=== PATIENT | male | born 1940 | race Caucasian/White ===

== ENCOUNTER 2016-10-03 15:20 | Emergency (ER) | payer MEDICARE, OTHER ==
[2016-10-03] MEDS ORDERED: IPRATROPIUM/ALBUTEROL (0.5MG/3MG) NEB INH ONE (15:38)
--- NOTE | 2016-10-03 15:41 | Emergency Department Record ---
History of Present Illness - General Chief Complaint: Cough Stated Complaint: COUGH Time Seen by Provider: 10/03/16 15:37 Source: Patient Mode of Arrival: Ambulatory Limitations: No limitations - History of Present Illness Initial Comments: 76 yo male presents to ED with a CC of cough symptoms for the past 2 weeks. Patient denies fevers or chills, denies previous heart or lung problems. Patient denies health problems at his baseline, and denies any medications. MD Complaint: Cough Onset/Timin -: Week(s) Severity: Mild Severity scale (1-10): 2 Consistency: Constant Improves With: Nothing Worsens With: Nothing Associated Symptoms: Denies other symptoms - Related Data Previous Rx's Medication Instructions Recorded Albuterol Sulfate [Proair 90 mcg IH Q4HR PRN #1 [email or web address] 10/03/16 Respiclick] Azithromycin [Zithromax] 250 mg PO DAILY #6 tablet 10/03/16 Prednisone [Prednisone 20Mg] 20 mg PO TID #15 tab 10/03/16 Allergies Allergy/AdvReac Type Severity Reaction Status Date / Time No Known Drug Allergies Allergy Verified 12/30/13 10:36 Travel Screening - Travel/Exposure Within Last 30 Days Have you traveled within the last 30 days?: No Review of Systems Constitutional: Denies: Chills, Fever, Malaise, Night sweats Eyes: Denies: Eye discharge, Eye pain ENT: Reports: Congestion. Denies: Ear pain, Epistaxis Respiratory: Reports: Cough. Denies: Dyspnea, Hemoptysis Cardiovascular: Denies: Chest pain, Dyspnea on exertion Endocrine: Denies: Fatigue, Heat or cold intolerance Gastrointestinal: Denies: Abdominal pain, Nausea, Vomiting Genitourinary: Denies: Incontinence, Retention Musculoskeletal: Denies: Arthralgia, Back pain, Gout, Joint swelling Skin: Denies: Bruising, Change in color Neurological: Denies: Abnormal gait, Confusion, Headache, Seizure Psychiatric: Denies: Anxiety Hematological/Lymphatic: Denies: Anemia, Blood Clots Past Medical History - SOCIAL HISTORY Smoking Status: Never smoker Alcohol Use: None Drug Use: None - RESPIRATORY Hx Respiratory Disorders: No - CARDIOVASCULAR Hx Cardio Disorders: No Comment:: enlarged heart - NEURO Hx Neuro Disorders: No - GI Hx GI Disorders: No - Hx Genitourinary Disorders: No - ENDOCRINE Hx Endocrine Disorders: No - MUSCULOSKELETAL Hx Musculoskeletal Disorders: No - PSYCH Hx Psych Problems: No - HEMATOLOGY/ONCOLOGY Hx Hematology/Oncology Disorders: No Family Medical History Any Significant Family History?: Yes Hx Heart Disease: Father, Mother Hx Stroke: Brother/Sister Physical Exam - General General Appearance: Alert, Oriented x3, Cooperative, No acute distress Limitations: No limitations - Head Head exam: Atraumatic, Normocephalic, Normal inspection Head exam detail: negative: Abrasion, Contusion, Rodriguez's sign, General tenderness, Hematoma, Laceration - Eye Eye exam: Normal appearance. negative: Conjunctival injection, Periorbital swelling, Periorbital tenderness, Scleral icterus - ENT Ear exam: negative: Auricular hematoma, Auricular trauma Nasal Exam: negative: Active bleeding, Discharge, Dried blood, Foreign body Mouth exam: negative: Drooling, Laceration, Muffled voice, Tongue elevation Teeth exam: Dental caries - Neck Neck exam: Normal inspection. negative: Meningismus, Tenderness - Respiratory Respiratory exam: Decreased breath sounds. negative: Rales, Respiratory distress, Rhonchi, Stridor - Cardiovascular Cardiovascular Exam: Regular rate, Normal rhythm, Normal heart sounds - GI/Abdominal GI/Abdominal exam: Soft. negative: Rebound, Rigid, Tenderness - Rectal Rectal exam: Deferred - exam: Deferred - Extremities Extremities exam: Normal inspection. negative: Tenderness - Back Back exam: Denies: CVA tenderness (R), CVA tenderness (L) - Neurological Neurological exam: Alert, Normal gait, Oriented X3 - Psychiatric Psychiatric exam: Normal affect, Normal mood - Skin Skin exam: Normal color. negative: Abrasion Type of lesion: negative: abrasion Course Vital Signs 10/03/16 15:27 Temperature 97.4 F L Pulse Rate 83 Respiratory 20 Rate Blood Pressure 174/104 Pulse Ox 95 - Reevaluation(s) Reevaluation #1: 10/03/16 16:42 CXR: No acute process Patient was updated on his radiology results, reports improvement in his symptoms, and appears stable for discharge home with treatment for bronchitis as an outpatient. Disposition Disposition: Discharge Clinical Impression: Bronchitis Disposition: Home, Self-Care Condition: (2) Stable Instructions: Acute Bronchitis (ED) Additional Instructions: Return to ED if your symptoms worsen or if you have any concerns. Zithromax, Prednisone, and Albuterol as directed. Follow-up with your family doctor in 3-5 days as directed. Prescriptions: Albuterol Sulfate [Proair Respiclick] 90 mcg IH Q4HR PRN #1 [email or web address] PRN Reason: Difficulty In Breathing Azithromycin [Zithromax] 250 mg PO DAILY #6 tablet Prednisone [Prednisone 20Mg] 20 mg PO TID #15 tab Forms: Patient Portal Access Time of Disposition: 16:46
== END 2016-10-03 17:00 | disposition home or self-care (01) ==
LOC: ER 15:20
DX: J20.9 Acute bronchitis, unspecified (principal)
CPT/HCPCS: 71020; 99283

== ENCOUNTER 2019-06-27 13:50 | Emergency (ER) | payer MEDICARE, OTHER ==
--- NOTE | 2019-06-27 14:15 | Emergency Department Record ---
History of Present Illness - General Chief complaint: Lower Extremity Pain Stated complaint: LEFT FOOT PAIN Time Seen by Provider: 06/27/19 14:10 Source: Patient, Family Mode of Arrival: Ambulatory Limitations: No limitations - History of Present Illness Initial comments: 78 yo male presents with left foot pain and swelling for one week. He denies any injury. He has mild pain. No abnormal warmth or coolness. No pain up the leg. No history of gout. The pain is in the mid foot mostly medial. He does not recall any injury. No toe pain. No nail injury. No other joints or concern at this time. Staci Hills is his PCP in [place]. He is not a diabetic. No history of neuropathy. MD Complaint: Extremity pain, Extremity swelling (foot), Joint pain, Joint swelling (foot) Onset/Timin -: Days(s) Location: Left, Foot History of Same: No Radiation: Proximal Severity scale (1-10): 8 Quality: Sharp Consistency: Constant Associated Symptoms: Denies other symptoms - Related Data Previous Rx's Medication Instructions Recorded Prednisone [Prednisone 20Mg] 20 mg PO BID #10 tab 06/27/19 Allergies Allergy/AdvReac Type Severity Reaction Status Date / Time No Known Drug Allergies Allergy Verified 06/27/19 14:02 Travel/Exposure Screening - Travel/Exposure Within Last 30 Days Have you traveled within the last 30 days?: No - Additonal Travel/Exposure Details Have you been exposed to anyone with a communicable illness?: No Review of Systems Constitutional: Denies: Chills, Fever, Malaise, Weakness Eyes: Denies: Eye discharge ENT: Denies: Congestion, Throat pain Respiratory: Denies: Cough Cardiovascular: Denies: Chest pain, Edema Endocrine: Denies: Fatigue Gastrointestinal: Denies: Abdominal pain, Diarrhea, Nausea, Vomiting Genitourinary: Denies: Dysuria, Frequency, Hematuria Musculoskeletal: Reports: Arthralgia, Joint swelling, Neck pain. Denies: Back pain Skin: Denies: Bruising, Change in color, Rash Neurological: Denies: Headache, Numbness, Tingling, Weakness Psychiatric: Denies: Anxiety Hematological/Lymphatic: Denies: Easy bleeding, Easy bruising Past Medical History - SOCIAL HISTORY Smoking Status: Never smoker Alcohol Use: None Drug Use: None - RESPIRATORY Hx Respiratory Disorders: No - CARDIOVASCULAR Hx Cardio Disorders: Yes Hx Hypertension: Yes Comment:: enlarged heart - NEURO Hx Neuro Disorders: No - GI Hx GI Disorders: No - Hx Genitourinary Disorders: No - ENDOCRINE Hx Endocrine Disorders: No - MUSCULOSKELETAL Hx Musculoskeletal Disorders: No - PSYCH Hx Psych Problems: No - HEMATOLOGY/ONCOLOGY Hx Hematology/Oncology Disorders: No Family Medical History Any Significant Family History?: No Hx Heart Disease: Father, Mother Hx Stroke: Brother/Sister Physical Exam - General General Appearance: Alert, Oriented x3, Cooperative, No acute distress Limitations: No limitations - Head Head exam: Atraumatic - Eye Eye exam: Normal appearance. negative: Conjunctival injection - ENT ENT exam: Normal exam Ear exam: Normal external inspection Nasal Exam: Normal inspection Mouth exam: Normal external inspection - Neck Neck exam: Normal inspection - Respiratory Respiratory exam: Normal lung sounds bilaterally - Cardiovascular Cardiovascular Exam: Regular rate, Normal rhythm, Normal heart sounds Peripheral Pulses: 2+: Dorsalis Pedis (L) - GI/Abdominal GI/Abdominal exam: Soft. negative: Tenderness - Extremities Extremities exam: Full ROM, Tenderness. negative: Normal inspection Image of Feet: 1 - mild diffuse foot swelling. No erythema. No abnormal warmth or coolness. Intact DP pulse. No bruising. Mildly tender mid to medial mid foot. Warm skin with normal capilarry refill. Less tender laterally. 2 - normal inspection - Neurological Neurological exam: Alert, Normal gait, Oriented X3. negative: Motor sensory deficit (sensation intact to the foot) - Psychiatric Psychiatric exam: Normal affect, Normal mood. negative: Agitated, Anxious - Skin Skin exam: Dry, Intact, Normal color, Warm. negative: Cyanosis, Diaphoretic, Erythema, Mottled, Rash Course Vital Signs 06/27/19 13:56 Temperature 97.7 F Pulse Rate 69 Respiratory 22 Rate Blood Pressure 155/96 Pulse Ox 99 - Reevaluation(s) Reevaluation #1: 06/27/19 14:44 The CBC is normal 06/27/19 15:03 The BMP was reviewed. CR is 1.4 (prior was 1.3) The uric acid is elevated at 7.2 06/27/19 15:22 The [place] office was called to expedite a follow up appointment for Mr. Gooden son. His will call today to set up the appointment Given his mild renal insufficiency and no diabetes he will be treated with Prednisone as opposed to a NSAID. No signs of infection or trauma. No signs of vascular insufficiency. 06/27/19 15:33 Medical Decision Making - Lab Data Result diagrams: 06/27/19 14:20 06/27/19 14:20 Disposition Disposition: Discharge Clinical Impression: Foot pain, left Gout Qualifiers: Gout site: unspecified site Gout etiology: unspecified cause Chronicity: acute Qualified Code(s): M10.9 - Gout, unspecified Disposition: Home, Self-Care Condition: (1) Good Instructions: Low Purine Diet (ED), Gout (ED) Additional Instructions: Review this ER visit and the tests performed with your family doctor in the next week Call your doctor for the next available follow up appointment in the next week Return to the ER for a recheck immediately if worse, any new concerns or questions Take the prescriptions provided as directed Prescriptions: Prednisone [Prednisone 20Mg] 20 mg PO BID #10 tab Forms: Patient Portal Access Time of Disposition: 15:23 Quality - Quality Measures Quality Measures: N/A - Blood Pressure Screening Does Patient Have Any of the Following: Active Dx of HTN Blood Pressure Classification: Hypertensive Reading Systolic Measurement: 155 Diastolic Measurement: 96 Screening for High Blood Pressure: Patient Exclusion, Hx of HTN [G9744]
[2019-06-27 14:37] LABS: ABSOLUTE NEUTROPHIL COUNT 5.32; BASO % 0.4 % (0-6); EOS % 3.5 % (0-6); GRAN % 66.3 % (47-80); HEMATOCRIT 42.9 % (42.0-52.0); HEMOGLOBIN 14.5 gm/dl (14.0-18.0); LYMPH % 19.6 % (16-45); MEAN CELL VOLUME 86.7 fl (81-97); MEAN CORPUSCULAR HEMOGLOBIN 29.3 pg (27-33); MEAN CORPUSCULAR HGB CONC 33.8 g/dl (32-36); MONO % 10.2 % (0-9); PLATELET COUNT 238 K/uL (130-400); RED BLOOD COUNT 4.95 M/uL (4.40-5.70); RED CELL DISTRIBUTION WIDTH 13.7 % (11.5-14.5)
[2019-06-27 14:41] LABS: CREATININE 1.4 mg/dL (0.7-1.2)
[2019-06-27] MEDS ORDERED: PREDNISONE 20 MG TAB PO ONE (15:03)
--- NOTE | 2019-06-27 15:23 | RADIOLOGY REPORT ---
EXAMINATION: Left Foot, Minimum Three Views EXAM DATE: 06/27/2019 3:09 PM TECHNIQUE: AP, lateral, and oblique INDICATION: left foot pain and swelling one week COMPARISON: None ENCOUNTER: Initial FINDINGS: No acute fracture or dislocation. Hammertoe deformities. Minimal degenerative change throughout the f oot. No evidence of erosive change. Tiny plantar calcaneal spur. Calcific atherosclerosis. Moderate s oft tissue swelling, greatest about the forefoot. Subtle amorphous soft tissue calcification about th e medial aspect of the first MTP joint, which may be seen with tophus. IMPRESSION: 1. No acute osseous abnormality. 2. Minimal degenerative change. 3. Possible gout at the first MTP joint. 4. Soft tissue swelling. Dictated by: Grisel Lorenzo MD on 06/27/2019 3:18 PM. .
== END 2019-06-27 15:34 | disposition home or self-care (01) ==
LOC: ER 13:50
DX: M10.072 Idiopathic gout, left ankle and foot (principal); I10 Essential (primary) hypertension
CPT/HCPCS: 99284 ×2; 96372; 84550; 85025; 80048; 73630; J7512